=== PATIENT | male | born 1955 | race Caucasian/White ===

== ENCOUNTER 2022-12-25 07:16 | Day surgery (SDC) | payer OTHER, MEDICARE ==
[2022-12-25] MEDS ORDERED: NA CHLORIDE 0.9% 1,000 ML ONE (07:56)
[2022-12-25] MEDS ORDERED: propofoL 200 MG/20 ML VIAL IV ONE ×2 (09:05→09:06)
[2022-12-25] MEDS ORDERED: LIDOCAINE 1% MPF 5 ML VIAL ONE (09:06)
[2022-12-25 12:50] VITALS: TEMP 97.2
[2022-12-25 12:55] VITALS: BP 133/59; O2SAT 100
--- NOTE | 2022-12-25 13:42 | RAD REPORT ---
EXAM DESCRIPTION: CT - CT CHEST,ABD,PELVIS W/O - 12/25/2022 1:01 pm CLINICAL HISTORY: S/P COLONOSCOPY COMPARISON: No comparisons TECHNIQUE: Thin cut axial CT images of the chest, abdomen, and pelvis, performed without IV contrast . Multiplanar reformats were generated and reviewed. All CT scans are performed using dose optimization technique as appropriate and may include automated exposure control or mA/KV adjustment according to patient size. FINDINGS: Small right layering pleural effusion, with underlying subsegmental dependent atelectasis. Other scattered bibasilar platelike atelectatic changes, mild. No suspicious nodules or masses. No p neumothorax.No left-sided pleural effusion, or pericardial effusion.No intrathoracic adenopathy. The liver, spleen, pancreas, adrenal glands and kidneys are within normal limits. Long segment of wall thickening and luminal narrowing along the mid transverse colon, coronal image 2 , measuring approximately 8.8 centimeter in length. This could relate to nondistention, although underlying mucosal lesion or a stricture cannot be entirely excluded. Normal small bowel caliber. No free air, free fluid or abscess. Normal appendix. No pathologic lymphadenopathy in the abdomen or p kristen. Prostatomegaly is noted, with some calcifications. No worrisome osseous finding. IMPRESSION: Long segment of wall thickening and luminal narrowing along the mid transverse colon, wh ich could relate to nondistention, although an underlying mucosal lesion or a stricture cannot be ent irely excluded. No other suspicious masses or adenopathy in the abdomen and pelvis. Small layering right pleural effusion with underlying dependent subsegmental atelectasis. No suspicio us abnormalities in the chest.
== END 2022-12-25 11:08 | disposition home or self-care (01) ==
LOC: OR 07:16
PROVIDERS: ATTEND Internal Medicine Gastroenterology
PROC: 0DBH8ZX Excision of Cecum, Via Natural or Artificial Opening Endoscopic, Diagnostic (ICD-10-PCS; 2022-12-25)
PROC: 0DBK8ZX Excision of Ascending Colon, Via Natural or Artificial Opening Endoscopic, Diagnostic (ICD-10-PCS; principal; 2022-12-25 08:45)
DX: Z12.11 Encounter for screening for malignant neoplasm of colon (principal); Z86.010 Personal history of colon polyps; E11.9 Type 2 diabetes mellitus without complications; I25.2 Old myocardial infarction; D12.2 Benign neoplasm of ascending colon; D12.0 Benign neoplasm of cecum; K64.8 Other hemorrhoids
CPT/HCPCS: 45385; 36415; 82565; 82947; 88305; 82378; 71250; 74176; J2704 ×2; J2001; J7030